=== PATIENT | male | born 2000 | race African-American/Black ===

== ENCOUNTER 2023-08-16 14:06 | Emergency (ER) | payer SELFPAY ==
--- NOTE | 2023-08-16 14:44 | ED ---
Eye Problem HPI - General Source: patient, RN notes reviewed <Aminata Seth - Last Filed: 08/16/23 14:43> - General Source: patient, RN notes reviewed <Andi Marc - Last Filed: 08/16/23 16:41> - General Stated complaint: Pains in L side of face Time Seen by Provider: 08/16/23 14:23 - History of Present Illness Initial comments: Quick Note-this is a 22-year-old male with no significant past medical history presents emergency department chief complaint of pressure to his left orbit that started this afternoon. He denies pain with extraocular movement or decrease in visual acuity. Denies nausea, vomiting, fevers. Does not wear contacts. Denies previous surgery on eyes. (Aminata Seth) - Related Data Previous Rx's Medication Instructions Recorded ARIPiprazole [Abilify] 10 mg PO DAILY #30 tab 04/14/20 Albuterol Inhaler [Ventolin Hfa 2 puff INHALATION RT-QID PRN #1 04/14/20 Inhaler] puff Loratadine [Claritin] 10 mg PO DAILY #30 tab 04/14/20 traZODone HCL [Desyrel] 50 mg PO HS PRN #30 tab 04/14/20 Allergies Allergy/AdvReac Type Severity Reaction Status Date / Time No Known Allergies Allergy Verified 04/09/20 01:47 Review of Systems ROS Other: All systems not noted in ROS Statement are negative. <Aminata Seth - Last Filed: 08/16/23 14:43> ROS Other: All systems not noted in ROS Statement are negative. <Andi Marc - Last Filed: 08/16/23 16:41> ROS Statement: Those systems with pertinent positive or pertinent negative responses have been documented in the HPI. Past Medical History Past Medical History: Asthma Additional Past Medical History / Comment(s): asthma as child, History of Any Multi-Drug Resistant Organisms: None Reported Past Surgical History: No Surgical Hx Reported Past Psychological History: No Psychological Hx Reported Smoking Status: Current every day smoker Past Alcohol Use History: Rare Past Drug Use History: Prescription Drug Abuse <Aminata Seth - Last Filed: 08/16/23 14:43> General Exam <Aminata Seth - Last Filed: 08/16/23 14:43> - General Exam Comments Initial Comments: Visual Physical Exam Vital signs reviewed General: Well-appearing, nontoxic, no acute distress. Head: Normocephalic, atraumatic Eyes: PERRLA, EOMI ENT: Airway patent Chest: Nonlabored breathing Skin: No visual rash, normal skin tone Neuro: Alert and oriented 3 Musculoskeletal: No gross abnormalities (Aminata Seth) Course Vital Signs 08/16/23 14:47 Temperature 98.5 F Pulse Rate 66 Respiratory 18 Rate Blood Pressure 118/73 O2 Sat by Pulse 100 Oximetry Medical Decision Making <Aminata Seth - Last Filed: 08/16/23 14:43> - Medical Decision Making I completed the quick note portion of this chart signed Aminata Seth PA-C (Aminata Seth) Disposition <Aminata Seth - Last Filed: 08/16/23 14:43> Is patient prescribed a controlled substance at d/c from ED?: No Time of Disposition: 16:00 <Andi Marc - Last Filed: 08/16/23 16:41> Clinical Impression: Preseptal cellulitis of left eye Disposition: HOME SELF-CARE Condition: Good Instructions (If sedation given, give patient instructions): Periorbital Cellulitis in Adults (ED) Referrals: None,Stated [Primary Care Provider] - 1-2 days
[2023-08-16 14:50] VITALS: RESP 18
[2023-08-16] MEDS: ACETAMINOPHEN TAB 500 MG TAB PO STA (16:25)
[2023-08-16] MEDS: IBUPROFEN 800 MG TAB PO STA (16:25)
[2023-08-16 16:51] VITALS: BP 112/69; PULSE 65; TEMP 99.3
--- NOTE | 2023-08-16 19:09 | CT ---
EXAMINATION TYPE: CT orbits wo con CT DLP: 325.1 mGycm, Automated exposure control for dose reduction was used. DATE OF EXAM: 08/16/2023 4:15 PM COMPARISON: None. CLINICAL INDICATION:Male, 22 years old with history of pain; PHH, Pt c/o numbness and pain around the left eye, including forehead and cheek. no vision changes TECHNIQUE: Orbits: Axial CT with coronal and sagittal reformats through the orbits. No IV or oral contrast was u tilized. Limited examination without IV contrast. Findings: Orbital Contents: * Globes: Normal. * Preseptal Tissues: Normal. * Intraconal Structures: Normal. * Extraconal Structures and Lacrimal Glands: Normal. * Orbital [place]: Normal. Sella Turcica and Cavernous Sinuses: The sella turcica and cavernous sinus regions are intact and sym metric. Visualized Brain Parenchyma: Normal. Paranasal Sinuses and Surrounding Structures: The paranasal sinuses are intact. The mastoid air cells and skull base is intact. Other: Soft tissues are within normal limits. IMPRESSION: Negative noncontrast CT orbits.
== END 2023-08-16 16:51 | disposition home or self-care (01) ==
LOC: EC 14:06
DX: L03.213 Periorbital cellulitis (principal); F17.200 Nicotine dependence, unspecified, uncomplicated
CPT/HCPCS: 70480; 99284